=== PATIENT | male | born 1940 | race African-American/Black ===

== ENCOUNTER 2021-12-02 03:42 | Emergency (ER) | payer MEDICARE, MEDICAID ==
[~2021-12-02] VITALS: Ht 185.4 cm; Wt 82.0 kg
[2021-12-02] MEDS ORDERED: MORPHINE SULFATE 4 MG/ML CPJ (NOT FOR IM USE) IV STA (04:10)
[2021-12-02] MEDS ORDERED: ONDANSETRON HCL 4MG/2ML INJ IV STA (04:10)
[2021-12-02] MEDS ORDERED: SODIUM CHLORIDE 0.9% 1,000 ML IV ONE (04:15)
[2021-12-02 05:14] LABS: BASOPHILS % 0.6 % (0.0-2.0); EOSINOPHILS % 0.1 % (0.0-5.0); HEMATOCRIT. 37.8 % (42.0-52.0); HEMOGLOBIN. 12.2 g/dL (14.0-18.0); LYMPHOCYTES % 14.9 % (20.0-50.0); MEAN CORPUSCULAR HEMOGLOBIN 24.3 pg (28.0-32.0); MEAN PLATELET VOLUME 7.1 fl (7.4-10.4); MONOCYTES % 5.8 % (2.0-8.0); NEUTROPHILS % 78.6 % (40.0-76.0); PLATELET 216 x1000/uL (130-400); RED BLOOD CELL COUNT 5.04 mill/uL (4.7-6.1); RED CELL DISTRIBUTION WIDTH 15.2 % (11.6-14.6)
[2021-12-02 05:22] LABS: CHLORIDE 107 mEq/L (98-107)
[2021-12-02 17:30] VITALS: BP 116/74
== END 2021-12-02 17:40 | disposition left against medical advice (07) ==
LOC: ER 03:42 → EDBEDREQ 15:26 → SUPCPDRO 15:42 → ER 17:40 → CANBEDREQ 19:49
DX: C61 Malignant neoplasm of prostate (principal); R10.2 Pelvic and perineal pain; Z85.6 Personal history of leukemia
CPT/HCPCS: 36415; 74176; 76770; 80053; 85025; 96374; 96375; 99285; J2270; J2405; J7030